=== PATIENT | female | born 2000 | race Two or more races ===

== ENCOUNTER 2023-09-22 15:17 | Outpatient (CLI) | payer OTHER | END 2023-09-22 15:21 | disposition home or self-care (01) | LOC: PRENATAL 15:17 | PROVIDERS: ATTEND Obstetrics & Gynecology Maternal & Fetal Medicine | DX: O36.80X0 Pregnancy with inconclusive fetal viability, not applicable or unspecified (principal); Z36.9 Encounter for antenatal screening, unspecified; Z36.82 Encounter for antenatal screening for nuchal translucency; Z3A.14 14 weeks gestation of pregnancy ==

== ENCOUNTER 2025-01-25 13:54 | Inpatient (IN) | payer OTHER ==
[~2025-01-25] VITALS: Ht 160 cm; Wt 60.8 kg
[2025-01-26 23:33] VITALS: BP 122/68
[2025-01-27] VITALS (8 sets, daily range): BP systolic 96–133; BP diastolic 63–76
[2025-01-27] MEDS ORDERED: RINGERS SOLUTION,LACTATED 1,000 ML IV SCH (00:15)
[2025-01-27] MEDS ORDERED: AMPICILLIN SODIUM 2,000 MG VIAL IV ONE (00:15)
[2025-01-27 00:59] LABS: BASO % 0.4 % (0.1-1.2); EOS # 0.09 (0.04-0.54); EOS % 0.9 % (0.7-7.0); LYMPH # 1.92 (1.18-3.74); LYMPH % 18.8 % (19.3-53.1); MEAN PLATELET VOLUME 11.80 fl (9.4-12.4); MONO # 0.95 (0.24-0.82); MONO % 9.3 % (4.7-12.5); NEUT # 7.18 (1.56-6.13); NEUT % 70.1 % (34.0-71.1); RED CELL DISTRIBUTION WIDTH 13.5 % (11.6-14.4)
[2025-01-27 01:01] LABS: URINE APPEARANCE Cloudy; URINE BILIRRUBIN Negative (NEGATIVE); URINE BLOOD Moderate; URINE COLOR Yellow; URINE GLUCOSE Negative (NEGATIVE); URINE KETONE Trace (NEGATIVE); URINE LEUKOCYTE Trace; URINE NITRATE Negative; URINE PROTEIN 30 (NEGATIVE); URINE UROBILINOGEN 0.2 E.U./dl
[2025-01-27 01:05] LABS: URINE BACTERIA 842.3 uL (0.0-1933); URINE EPITHELIAL CELLS 39.3 uL (0.0-38.8); URINE RBC 264.2 uL (0.0-20.8); URINE WBC 78.3 uL (0.0-23.2)
[2025-01-27 01:17] LABS: TYPE CELLS SQUAMOUS; URINE CAST 1.17 uL (0.0-1.40)
[2025-01-27 01:19] LABS: INR < 0.93
[2025-01-27 01:24] LABS: ALT/SGPT 19.0 U/L (12-78); AST/SGOT 21.0 U/L (15-37); BILIRUBIN TOTAL 0.24 mg/dL (0.3-1.2); BUN CREA RATIO 22.0 (7.0-25.0); CREATININE SERUM 0.69 mg/dL (0.55-1.02); GFR 106.39; GLOBULINA 3.3 G/DL (2.4-3.5); GLUCOSE FASTING 81.0 mg/dL (65-100); OSMOLALITY SERUM 279.0 MOSM/KG (275-295)
[2025-01-27] MEDS ORDERED: MORPHINE SULFATE 4 MG/ML VIAL IV ONE ×2 (01:45)
[2025-01-27] MEDS ORDERED: AMPICILLIN SODIUM 1,000 MG VIAL IV SCH (05:00)
[2025-01-27] MEDS ORDERED: LIDOCAINE HCL 1% 10ML VIAL PERCUT ONE (06:30)
[2025-01-27] MEDS ORDERED: CHLORHEXIDINE GLUCONATE 120 ML BOTTLE TOP ONE (06:30)
[2025-01-27] MEDS ORDERED: OXYTOCIN 20 UNITS/1000ML RL PIGGYBAG IV SCH (06:30)
[2025-01-27] MEDS ORDERED: ERYTHROMYCIN BASE OPHT 1GM EACH TUBE OP ONE (06:30)
[2025-01-27] MEDS ORDERED: PNV,CALCIUM 72/IRON/FOLIC ACID 1 TAB TABLET PO SCH (09:00)
[2025-01-27 15:13] LABS: BASO % 0.1 % (0.1-1.2); EOS # 0.01 (0.04-0.54); EOS % 0.1 % (0.7-7.0); LYMPH # 1.62 (1.18-3.74); LYMPH % 10.4 % (19.3-53.1); MEAN PLATELET VOLUME 11.00 fl (9.4-12.4); MONO # 1.42 (0.24-0.82); MONO % 9.1 % (4.7-12.5); NEUT # 12.46 (1.56-6.13); NEUT % 79.7 % (34.0-71.1); RED CELL DISTRIBUTION WIDTH 13.4 % (11.6-14.4)
[2025-01-28 00:10] VITALS: BP 116/74
[2025-01-28 08:08] VITALS: BP 103/69
[2025-01-28 13:04] VITALS: BP 112/72
[2025-01-28 16:00] VITALS: BP 107/73
[2025-01-29 01:03] VITALS: BP 112/71
[2025-01-29 08:46] VITALS: BP 107/69
== END 2025-01-29 15:12 | disposition home or self-care (01) | DRG 807 ==
LOC: LDR 01-26 23:52 → OB/GYN 01-27 06:37 → LDR 02-02 14:45
PROVIDERS: Obstetrics & Gynecology; ADMIT Specialist; ATTEND Specialist
PROC: 4A1HXCZ Monitoring of Products of Conception, Cardiac Rate, External Approach (ICD-10-PCS; 2025-01-26)
PROC: 10E0XZZ Delivery of Products of Conception, External Approach (ICD-10-PCS; principal; 2025-01-27)
PROC: 0UQG7ZZ Repair Vagina, Via Natural or Artificial Opening (ICD-10-PCS; 2025-01-27)
DX: O71.4 Obstetric high vaginal laceration alone (principal); Z37.0 Single live birth; Z3A.39 39 weeks gestation of pregnancy